=== PATIENT | male | born 1950 | race Caucasian/White ===

== ENCOUNTER → 2016-09-09 | Outpatient (CLI) | payer OTHER ==
[~2016-09-09] MED LIST: ALPR0.25 PO; ASPI-515 PO; EZET10TA3 PO; FINA1TAB16 PO; LEVO25TA4 PO; METO25TA35 PO; OXYC-302 PO; TAMS-11 PO
== END | disposition home or self-care (01) ==
LOC: CFH 10:30
PROVIDERS: ATTEND Family Medicine
DX: R91.8 Other nonspecific abnormal finding of lung field (principal); K56.69 Other intestinal obstruction; M25.811 Other specified joint disorders, right shoulder
CPT/HCPCS: 74022

== ENCOUNTER 2016-09-11 18:21 | Inpatient (IN) | payer OTHER ==
[~2016-09-11] VITALS: Ht 172.7 cm; Wt 78.5 kg
[2016-09-11] MEDS ORDERED: SODIUM CHLORIDE FLUSH 10ML SYR IVF ONE (19:00)
[2016-09-11 19:32] LABS: ASPARTATE AMINO TRANSFERASE 33 U/L (15-37); BLOOD UREA NITROGEN 11 mg/dL (7-18)
[2016-09-11 19:42] LABS: HEMOGLOBIN 14.1 g/dL (13.7-18.0)
[2016-09-11 19:43] LABS: ANISOCYTOSIS 2+
[2016-09-11 19:44] LABS: HYPOCHROMIA 1+; POLYCHROMASIA 1+; TARGET CELLS 1+
[2016-09-11 19:45] LABS: OVALOCYTES 1+
[2016-09-11] MEDS ORDERED: SODIUM CHLORIDE 0.9% 1,000 ML IV ONE ×2 (20:04→21:49)
[2016-09-11] MEDS ORDERED: MORPHINE SULFATE 4 MG/ML, 1ML ONE (20:24)
[2016-09-11] MEDS ORDERED: ONDANSETRON 2MG/ML, 2ML ONE (20:24)
[2016-09-11] MEDS ORDERED: ONDANSETRON 2MG/ML, 2ML IVPush ONE (20:30)
[2016-09-11] MEDS ORDERED: MORPHINE SULFATE 4 MG/ML, 1ML IVPush PRN (20:30)
[2016-09-11] MEDS ORDERED: SODIUM CHLORIDE 0.9% 1,000ML IVBOLUS ONE (20:30)
[2016-09-11] MEDS ORDERED: SODIUM CHLORIDE FLUSH 10ML SYR IVF PRN (22:00)
[2016-09-11] MEDS: SODIUM CHLORIDE 0.9% 1,000 ML IV SCH (22:40)
[2016-09-11] MEDS ORDERED: ACETAMINOPHEN 325 MG TABLET PO PRN (23:00)
[2016-09-11] MEDS ORDERED: ONDANSETRON 2MG/ML, 2ML IVP PRN (23:00)
[2016-09-11] MEDS ORDERED: POLYETHYLENE GLYCOL 17 GM PACKET PO PRN (23:00)
[2016-09-11 23:24] VITALS: BP 116/79
[2016-09-11] MEDS: HEPARIN 5,000 UNITS/ML, 1ML SQ SCH (23:43)
[2016-09-11] MEDS: MORPHINE SULFATE 4 MG/ML, 1ML IVPush PRN (23:58)
[2016-09-12] MEDS: METRONIDAZOLE PMX 500MG/100ML 100 ML IV SCH ×3 (00:12→17:15)
[2016-09-12] MEDS: CEFTRIAXONE PMX 1GM/50ML 50 ML IV SCH (01:19)
[2016-09-12] MEDS: MORPHINE SULFATE 4 MG/ML, 1ML IVPush PRN ×5 (03:15→22:07)
[2016-09-12 04:57] VITALS: BP 120/69
[2016-09-12] MEDS ORDERED: LEVOTHYROXINE 25 MCG TABLET PO SCH (06:00)
[2016-09-12 06:34] LABS: BLOOD UREA NITROGEN 11 mg/dL (7-18)
[2016-09-12 06:37] LABS: ASPARTATE AMINO TRANSFERASE 37 U/L (15-37)
[2016-09-12 06:51] LABS: ANISOCYTOSIS 2+; HYPOCHROMIA 1+; MICROCYTOSIS 1+; OVALOCYTES 1+
[2016-09-12 06:52] LABS: POLYCHROMASIA 1+
[2016-09-12 08:27] VITALS: BP 117/76
[2016-09-12] MEDS ORDERED: FINASTERIDE 5 MG TABLET PO SCH (09:00)
[2016-09-12] MEDS ORDERED: TAMSULOSIN 0.4 MG CAP.ER.24H PO SCH (09:00)
[2016-09-12] MEDS: HEPARIN 5,000 UNITS/ML, 1ML SQ SCH ×2 (09:05→17:15)
[2016-09-12] MEDS: ASPIRIN 81 MG TABLET EC PO SCH (09:07)
[2016-09-12] MEDS: SENNA/DOCUSATE TABLET PO SCH (09:07)
[2016-09-12] MEDS: BISACODYL 10 MG SUPP PR SCH (09:15)
[2016-09-12] MEDS: SODIUM CHLORIDE 0.9% 1,000 ML IV SCH ×2 (09:16→19:48)
[2016-09-12 13:47] VITALS: BP 120/79
[2016-09-12] MEDS ORDERED: IRON SUCROSE COMPLEX 100MG/5ML IV ONE (19:00)
[2016-09-12] MEDS ORDERED: LORazepam 1MG TABLET PO PRN (19:30)
[2016-09-12 19:58] VITALS: BP 122/78
[2016-09-12] MEDS: POLYETHYLENE GLYCOL 17 GM PACKET PO SCH (20:14)
[2016-09-13] MEDS: CEFTRIAXONE PMX 1GM/50ML 50 ML IV SCH (00:40)
[2016-09-13] MEDS: HEPARIN 5,000 UNITS/ML, 1ML SQ SCH ×3 (00:40→17:24)
[2016-09-13] MEDS: MORPHINE SULFATE 4 MG/ML, 1ML IVPush PRN ×3 (01:33→22:10)
[2016-09-13] MEDS: METRONIDAZOLE PMX 500MG/100ML 100 ML IV SCH ×3 (01:33→18:38)
[2016-09-13 01:37] VITALS: BP 144/74
[2016-09-13] MEDS: LEVOTHYROXINE 25 MCG TABLET HOMEMEDPO SCH (05:54)
[2016-09-13] MEDS: SODIUM CHLORIDE 0.9% 1,000 ML IV SCH ×3 (05:54→18:38)
[2016-09-13 05:59] LABS: HEMOGLOBIN 12.1 g/dL (13.7-18.0)
[2016-09-13 06:39] LABS: BLOOD UREA NITROGEN 6 mg/dL (7-18)
[2016-09-13 08:14] VITALS: BP 121/75
[2016-09-13] MEDS: SENNA/DOCUSATE TABLET PO SCH (08:39)
[2016-09-13] MEDS: ASPIRIN 81 MG TABLET EC PO SCH (08:39)
[2016-09-13] MEDS: POLYETHYLENE GLYCOL 17 GM PACKET PO SCH (08:39)
[2016-09-13] MEDS: BISACODYL 10 MG SUPP PR SCH (09:00)
[2016-09-13 13:47] VITALS: BP 113/71
[2016-09-13 14:26] LABS: OCCBLD OBC PASS
[2016-09-13] MEDS ORDERED: CALCIUM GLUCONATE 9.2 MEQ in SODIUM CHLORIDE 0.9% 100 ML IV ONE (18:00)
[2016-09-13] MEDS ORDERED: POTASSIUM CHLORIDE 40 MEQ in SODIUM CHLORIDE 0.9% 500 ML IV ONE (18:00)
[2016-09-13 19:41] VITALS: BP 152/90
[2016-09-13] MEDS: FINASTERIDE 5 MG TABLET HOMEMEDPO SCH (20:54)
[2016-09-13] MEDS: TAMSULOSIN 0.4 MG CAP.ER.24H HOMEMEDPO SCH (20:55)
[2016-09-14] MEDS: CEFTRIAXONE PMX 1GM/50ML 50 ML IV SCH (01:08)
[2016-09-14] MEDS: HEPARIN 5,000 UNITS/ML, 1ML SQ SCH ×3 (01:12→17:11)
[2016-09-14 01:29] VITALS: BP 131/69
[2016-09-14] MEDS: METRONIDAZOLE PMX 500MG/100ML 100 ML IV SCH ×3 (02:45→18:28)
[2016-09-14] MEDS: MORPHINE SULFATE 4 MG/ML, 1ML IVPush PRN ×2 (03:24→21:51)
[2016-09-14] MEDS: LEVOTHYROXINE 25 MCG TABLET HOMEMEDPO SCH (06:00)
[2016-09-14 06:33] VITALS: BP 113/77
[2016-09-14] MEDS: SENNA/DOCUSATE TABLET PO SCH (08:41)
[2016-09-14] MEDS: FINASTERIDE 5 MG TABLET HOMEMEDPO SCH (08:43)
[2016-09-14] MEDS: ASPIRIN 81 MG TABLET EC PO SCH (08:43)
[2016-09-14] MEDS: TAMSULOSIN 0.4 MG CAP.ER.24H HOMEMEDPO SCH (08:43)
[2016-09-14] MEDS: BISACODYL 10 MG SUPP PR SCH (08:45)
[2016-09-14] MEDS: POLYETHYLENE GLYCOL 17 GM PACKET PO SCH (08:45)
[2016-09-14] MEDS ORDERED: zetia PO (11:41)
[2016-09-14] MEDS ORDERED: IRON SUCROSE COMPLEX 100MG/5ML IV ONE (12:00)
[2016-09-14] MEDS ORDERED: CEFD300C2 PO (12:10)
[2016-09-14] MEDS ORDERED: SENN1TAB7 PO (12:10)
[2016-09-14] MEDS ORDERED: FERR324T8 PO (12:10)
[2016-09-14] MEDS ORDERED: METR500T PO (12:10)
[2016-09-14] MEDS ORDERED: FINA5TAB4 HOMEMEDPO (12:10)
[2016-09-14] MEDS: EZETIMIBE 10 MG TABLET PO SCH (13:05)
[2016-09-14 13:54] VITALS: BP 143/89
[2016-09-14] MEDS: SODIUM CHLORIDE 0.9% 1,000 ML IV SCH ×2 (15:18→22:00)
[2016-09-14 18:36] VITALS: BP 152/84
[2016-09-14] MEDS: OXYcodone/APAP 10/325MG TABLET PO PRN (20:10)
[2016-09-14] MEDS ORDERED: TAMSULOSIN 0.4 MG CAP.ER.24H HOMEMEDPO SCH (21:00)
[2016-09-14] MEDS ORDERED: FINASTERIDE 5 MG TABLET HOMEMEDPO SCH (21:00)
[2016-09-14] MEDS ORDERED: SODIUM CHLORIDE 0.9% 1,000 ML IV SCH (22:40)
[2016-09-15] MEDS: MORPHINE SULFATE 4 MG/ML, 1ML IVPush PRN ×2 (01:07→06:10)
[2016-09-15] MEDS: CEFTRIAXONE PMX 1GM/50ML 50 ML IV SCH (01:07)
[2016-09-15] MEDS: HEPARIN 5,000 UNITS/ML, 1ML SQ SCH ×2 (01:15→08:59)
[2016-09-15 01:58] VITALS: BP 117/71
[2016-09-15] MEDS: OXYcodone/APAP 10/325MG TABLET PO PRN (03:07)
[2016-09-15] MEDS: METRONIDAZOLE PMX 500MG/100ML 100 ML IV SCH ×2 (03:07→11:12)
[2016-09-15] MEDS: LEVOTHYROXINE 25 MCG TABLET HOMEMEDPO SCH (06:11)
[2016-09-15 08:28] VITALS: BP 129/85
[2016-09-15] MEDS: POLYETHYLENE GLYCOL 17 GM PACKET PO SCH (08:54)
[2016-09-15] MEDS: BISACODYL 10 MG SUPP PR SCH (08:54)
[2016-09-15] MEDS: SENNA/DOCUSATE TABLET PO SCH (08:55)
[2016-09-15] MEDS: EZETIMIBE 10 MG TABLET PO SCH (08:58)
[2016-09-15] MEDS ORDERED: ASPIRIN 81 MG TABLET EC PO SCH (09:00)
[2016-09-15] MEDS: SODIUM CHLORIDE 0.9% 1,000 ML IV SCH (11:26)
[2016-09-15 14:33] VITALS: BP 111/66
[2016-09-16] MEDS ORDERED: FERROUS GLUCONATE 324 MG TABLET PO SCH (17:00)
== END 2016-09-15 15:10 | disposition home or self-care (01) | DRG 392 ==
LOC: ED 21:18 → EDIP 22:51 → 4NOR 23:22
DX: K57.32 Diverticulitis of large intestine without perforation or abscess without bleeding (principal); I50.20 Unspecified systolic (congestive) heart failure; E78.5 Hyperlipidemia, unspecified; K59.00 Constipation, unspecified; G90.2 Horner's syndrome; E03.9 Hypothyroidism, unspecified; N40.0 Benign prostatic hyperplasia without lower urinary tract symptoms; D50.9 Iron deficiency anemia, unspecified; F41.9 Anxiety disorder, unspecified; I25.10 Atherosclerotic heart disease of native coronary artery without angina pectoris; Z87.891 Personal history of nicotine dependence; Z95.5 Presence of coronary angioplasty implant and graft; Z90.49 Acquired absence of other specified parts of digestive tract; Z81.1 Family history of alcohol abuse and dependence
CPT/HCPCS: 36415; 74022; 80048; 80053; 81003; 82272; 82306; 82607; 82728; 83540; 83550; 83605; 83690; 83735; 84100; 85025; 96361; 96374; J0610; J0696; J1644; J1756; J2405; J3480; J7030; J7040

== ENCOUNTER → 2016-09-24 | Outpatient (CLI) | payer OTHER ==
[~2016-09-24] MED LIST changes: +CEFD300C37 PO; +FERR324T8 PO; +FINA5TAB4 HOMEMEDPO; +METR500T PO; +SENN1TAB7 PO; +zetia PO
== END | disposition home or self-care (01) ==
LOC: RAD 07:30
PROVIDERS: ATTEND Internal Medicine Gastroenterology
DX: K57.30 Diverticulosis of large intestine without perforation or abscess without bleeding (principal); K56.69 Other intestinal obstruction; J44.9 Chronic obstructive pulmonary disease, unspecified; K22.70 Barrett's esophagus without dysplasia; G47.30 Sleep apnea, unspecified; K59.00 Constipation, unspecified; E61.1 Iron deficiency
CPT/HCPCS: 74270

== ENCOUNTER → 2016-12-11 | Outpatient (CLI) | payer OTHER | END | disposition home or self-care (01) | LOC: CFH 12:13 | PROVIDERS: ATTEND Family Medicine | DX: J44.9 Chronic obstructive pulmonary disease, unspecified (principal) | CPT/HCPCS: 71020 ==

== ENCOUNTER 2017-06-17 21:30 | Emergency (ER) | payer OTHER ==
[~2017-06-17] VITALS: Ht 172.7 cm; Wt 80.0 kg
[~2017-06-17 21:30] MED LIST changes: +EZET10TA18 PO; -EZET10TA3 PO
[2017-06-17 22:38] LABS: MEAN CORPUSCULAR HEMOGLOBIN 20.5 pg (27.5-34.5); MEAN CORPUSCULAR HGB CONC 30.7 g/dL (33.2-36.2); MEAN CORPUSCULAR VOLUME 66.9 fL (81-97); MEAN PLATELET VOLUME 7.8 fL (7.4-10.4); PLATELET COUNT 411 x10^3/uL (130-400); RED BLOOD COUNT 6.32 x10^6/uL (4.38-5.82); RED CELL DISTRIBUTION WIDTH 21.9 % (9.4-14.8)
[2017-06-17 22:45] LABS: ALANINE AMINOTRANSFERASE 33 U/L (12-78); ANION GAP 7 mmol/L (5-15); CALCIUM 8.6 mg/dL (8.5-10.1); CHLORIDE 104 mmol/L (98-107)
[2017-06-17 22:50] LABS: ALKALINE PHOSPHATASE 56 U/L (45-117); BILIRUBIN,TOTAL 0.4 mg/dL (0.2-1.0); CREATININE 1.15 mg/dL (0.7-1.3); TOTAL PROTEIN 7.9 g/dL (6.4-8.2); TROPONIN I < 0.015 ng/mL (0.000-0.045)
[2017-06-17 23:06] LABS: MICROSCOPIC NOT IND
[2017-06-17 23:12] LABS: BASOPHILS # (AUTO) 0.07 x10^3/uL (0-0.1); BASOPHILS % (AUTO) 1 % (0-1); EOSINOPHILS # (AUTO) 0.51 x10^3/uL (0-0.4); EOSINOPHILS % (AUTO) 5 % (1-7); LYMPHOCYTES # (AUTO) 3.22 x10^3/uL (1-3.4); LYMPHOCYTES % (AUTO) 32 % (22-44); MD MORPH REVIEW ONLY; MONOCYTES # (AUTO) 0.92 x10^3/uL (0.2-0.8); MONOCYTES % (AUTO) 9 % (2-9); NEUTROPHILS # (AUTO) 5.44 x10^3/uL (1.8-6.8); NEUTROPHILS % (AUTO) 54 % (42-75)
[2017-06-17 23:15] LABS: <PLATELET ESTIMATE> INCREASED; <PLT MORPHOLOGY> NORMAL PLT MORPH; ANISOCYTOSIS 2+; HYPOCHROMIA 1+; MICROCYTOSIS 1+; OVALOCYTES 1+; POLYCHROMASIA 1+; TEAR DROPS 1+
[2017-06-17 23:16] LABS: CULTURE INDICATED? NO
[2017-06-18 00:03] VITALS: BP 141/51
[2017-06-18 00:36] LABS: FREE T4 (FREE THYROXINE) 0.83 ng/dL (0.76-1.46); THYROID STIMULATING HORMONE 3.83 mIU/L (0.358-3.740)
== END 2017-06-18 01:07 | disposition home or self-care (01) ==
LOC: ED 23:18
DX: R00.8 Other abnormalities of heart beat (principal); I49.3 Ventricular premature depolarization; R42 Dizziness and giddiness; R53.83 Other fatigue; E03.9 Hypothyroidism, unspecified; I25.10 Atherosclerotic heart disease of native coronary artery without angina pectoris; Z90.49 Acquired absence of other specified parts of digestive tract
CPT/HCPCS: 36415; 71045; 80053; 81003; 83735; 84439; 84443; 84484; 85025; 93005; 99285

== ENCOUNTER 2017-06-20 15:18 | Inpatient (IN) | payer OTHER ==
[~2017-06-20] VITALS: Ht 172.7 cm; Wt 78.4 kg
[2017-06-20] MEDS ORDERED: SODIUM CHLORIDE FLUSH 10ML SYR IVF ONE (16:00)
[2017-06-20] MEDS ORDERED: PLEASE ENTER HEIGHT AND WEIGHT MC SCH (16:00)
[2017-06-20 16:30] LABS: MEAN CORPUSCULAR HEMOGLOBIN 20.3 pg (27.5-34.5); MEAN CORPUSCULAR HGB CONC 30.6 g/dL (33.2-36.2); MEAN CORPUSCULAR VOLUME 66.2 fL (81-97); MEAN PLATELET VOLUME 7.9 fL (7.4-10.4); PLATELET COUNT 386 x10^3/uL (130-400); RED CELL DISTRIBUTION WIDTH 21.3 % (9.4-14.8)
[2017-06-20 16:32] LABS: ALANINE AMINOTRANSFERASE 29 U/L (12-78); ALBUMIN 4.1 g/dL (3.4-5.0); ANION GAP 8 mmol/L (5-15); CALCIUM 8.6 mg/dL (8.5-10.1); CHLORIDE 102 mmol/L (98-107); CREATININE 1.13 mg/dL (0.7-1.3)
[2017-06-20 16:36] LABS: ALKALINE PHOSPHATASE 59 U/L (45-117); BILIRUBIN,TOTAL 1.2 mg/dL (0.2-1.0); TOTAL PROTEIN 8.1 g/dL (6.4-8.2); TROPONIN I < 0.015 ng/mL (0.000-0.045)
[2017-06-20 17:00] LABS: MD YES
[2017-06-20 17:04] LABS: BASOS#(MANUAL) 0.08 x10^3/uL (0-0.1); BASOS% (MANUAL) 1 % (0-1); EOS#(MANUAL) 0.17 x10^3/uL (0.0-0.4); EOS% (MANUAL) 2 % (1-7); LYMPH#(MANUAL) 2.99 x10^3/uL (1-3.4); LYMPHS% (MANUAL) 36 % (22-44); MONOS#(MANUAL) 0.91 x10^3/uL (0.3-2.7); MONOS% (MANUAL) 11 % (2-9); REACTIVE LYMPHS # (MANUAL) 0.08 x10^3/uL (0-0); REACTIVE LYMPHS % (MANUAL) 1 % (0-0); SEG#(MANUAL) 4.07 x10^3/uL (1.8-6.8); SEGS% (MANUAL) 49 % (42-75)
[2017-06-20 17:05] LABS: ANISOCYTOSIS 2+; MICROCYTOSIS 1+
[2017-06-20 17:06] LABS: HYPOCHROMIA 1+; POLYCHROMASIA 1+
[2017-06-20 17:07] LABS: OVALOCYTES 1+
[2017-06-20 17:08] LABS: <PLATELET ESTIMATE> ADEQUATE; <PLT MORPHOLOGY> NORMAL PLT MORPH
[2017-06-20] MEDS ORDERED: LORazepam 2 MG/ML, 1ML ONE (17:50)
[2017-06-20] MEDS ORDERED: LORazepam 2 MG/ML, 1ML IVPush ONE (18:00)
[2017-06-20] MEDS ORDERED: SODIUM CHLORIDE 0.9% 1,000 ML IV SCH (19:03)
[2017-06-20] MEDS ORDERED: ONDANSETRON 2MG/ML, 2ML IVPush PRN (19:30)
[2017-06-20] MEDS ORDERED: ACETAMINOPHEN 325 MG TABLET PO PRN (19:30)
[2017-06-20] MEDS ORDERED: hydrALAzine 20 MG/ML, 1ML IVPush PRN (19:30)
[2017-06-20] MEDS ORDERED: SENNA/DOCUSATE TABLET PO PRN (19:30)
[2017-06-20 21:20] VITALS: BP 138/77
[2017-06-20] MEDS: FERROUS GLUCONATE 324 MG TABLET PO SCH (22:01)
[2017-06-21 03:20] VITALS: BP 95/59
[2017-06-21 06:51] VITALS: BP 97/63
[2017-06-21] MEDS: FERROUS GLUCONATE 324 MG TABLET PO SCH (08:56)
[2017-06-21] MEDS ORDERED: TAMSULOSIN 0.4 MG CAP.ER.24H PO SCH (09:00)
[2017-06-21] MEDS ORDERED: LEVOTHYROXINE 25 MCG TABLET PO SCH (09:00)
== END 2017-06-21 13:47 | disposition home or self-care (01) | DRG 310 ==
LOC: ED 17:10 → EDIP 17:11 → ED 17:15 → 5SO 20:32
PROVIDERS: ADMIT Hospitalist; ATTEND Hospitalist
DX: I49.5 Sick sinus syndrome (principal); G90.2 Horner's syndrome; E03.9 Hypothyroidism, unspecified; E78.5 Hyperlipidemia, unspecified; F41.9 Anxiety disorder, unspecified; I25.10 Atherosclerotic heart disease of native coronary artery without angina pectoris; N40.0 Benign prostatic hyperplasia without lower urinary tract symptoms; I34.0 Nonrheumatic mitral (valve) insufficiency; M24.011 Loose body in right shoulder; Z87.01 Personal history of pneumonia (recurrent); Z87.891 Personal history of nicotine dependence; Z95.5 Presence of coronary angioplasty implant and graft; Z90.49 Acquired absence of other specified parts of digestive tract; R00.8 Other abnormalities of heart beat
CPT/HCPCS: 36415; 71045; 80053; 83880; 84484; 85025; 93005; 93306; 96374; J2060; J7030

== ENCOUNTER 2017-09-03 13:10 | Emergency (ER) | payer OTHER ==
[~2017-09-03] VITALS: Ht 172.7 cm; Wt 79.9 kg
[2017-09-03 14:26] LABS: ALBUMIN 3.9 g/dL (3.4-5.0); ANION GAP 7 mmol/L (5-15); CALCIUM 8.8 mg/dL (8.5-10.1); CHLORIDE 102 mmol/L (98-107); CREATININE 1.03 mg/dL (0.7-1.3)
[2017-09-03 14:30] LABS: T4 (THYROXINE) 11.2 mcg/dL (4.5-12.1); TROPONIN I < 0.015 ng/mL (0.000-0.045)
[2017-09-03 14:39] LABS: MEAN CORPUSCULAR HEMOGLOBIN 22.2 pg (27.5-34.5); MEAN CORPUSCULAR HGB CONC 31.2 g/dL (33.2-36.2); MEAN CORPUSCULAR VOLUME 71.3 fL (81-97); MEAN PLATELET VOLUME 8.3 fL (7.4-10.4); PLATELET COUNT 348 x10^3/uL (130-400); RED BLOOD COUNT 6.39 x10^6/uL (4.38-5.82); RED CELL DISTRIBUTION WIDTH 23.8 % (9.4-14.8)
[2017-09-03 14:49] VITALS: BP 132/89
[2017-09-03 15:22] LABS: MD MORPH REVIEW ONLY
[2017-09-03 15:23] LABS: ANISOCYTOSIS 2+; BASOPHILS # (AUTO) 0.05 x10^3/uL (0-0.1); BASOPHILS % (AUTO) 1 % (0-1); EOSINOPHILS # (AUTO) 0.13 x10^3/uL (0-0.4); EOSINOPHILS % (AUTO) 1 % (1-7); HYPOCHROMIA 1+; LYMPHOCYTES # (AUTO) 1.99 x10^3/uL (1-3.4); LYMPHOCYTES % (AUTO) 22 % (22-44); MICROCYTOSIS 1+; MONOCYTES # (AUTO) 0.69 x10^3/uL (0.2-0.8); MONOCYTES % (AUTO) 8 % (2-9); NEUTROPHILS # (AUTO) 6.37 x10^3/uL (1.8-6.8); NEUTROPHILS % (AUTO) 69 % (42-75); OVALOCYTES 2+; POLYCHROMASIA 1+
[2017-09-03 15:24] LABS: <PLATELET ESTIMATE> ADEQUATE; <PLT MORPHOLOGY> NORMAL PLT MORPH; SCHISTOCYTES 1+; TARGET CELLS 1+
== END 2017-09-03 15:53 | disposition home or self-care (01) ==
LOC: ED 15:40
DX: R00.2 Palpitations (principal); E03.9 Hypothyroidism, unspecified; F41.9 Anxiety disorder, unspecified; Z90.49 Acquired absence of other specified parts of digestive tract; I25.2 Old myocardial infarction
CPT/HCPCS: 36415; 80048; 82040; 84436; 84443; 84484; 85025; 93005; 99285

== ENCOUNTER → 2020-02-29 | Outpatient (CLI) | payer MEDICARE ==
[~2020-02-29] MED LIST changes: -EZET10TA18 PO; +EZET10TA70 PO; +SENN-177 PO; -SENN1TAB7 PO
== END | disposition home or self-care (01) ==
LOC: CFH 12:50
PROVIDERS: ATTEND Internal Medicine Cardiovascular Disease
DX: I46.9 Cardiac arrest, cause unspecified (principal)
CPT/HCPCS: 93306

== ENCOUNTER 2020-04-23 18:12 | Emergency (ER) | payer MEDICARE ==
[~2020-04-23] VITALS: Ht 165.1 cm; Wt 80.2 kg
--- NOTE | 2020-04-23 18:14 | NUR ---
NA X 1 @ [id number]
[2020-04-23 18:55] LABS: BASOPHILS % (AUTO) 1 % (0-1); EOSINOPHILS % (AUTO) 5 % (1-7); LYMPHOCYTES % (AUTO) 26 % (22-44); MEAN CORPUSCULAR HEMOGLOBIN 24.4 pg (27.5-34.5); MEAN CORPUSCULAR HGB CONC 32.1 g/dL (33.2-36.2); MEAN PLATELET VOLUME 7.1 fL (7.4-10.4); MONOCYTES % (AUTO) 8 % (2-9); NEUTROPHILS % (AUTO) 61 % (42-75); PLATELET COUNT 423 x10^3/uL (130-400); RED BLOOD COUNT 5.56 x10^6/uL (4.38-5.82); RED CELL DISTRIBUTION WIDTH 21.3 % (9.4-14.8)
[2020-04-23 18:58] LABS: MD NO
[2020-04-23 19:06] LABS: ALBUMIN 3.4 g/dL (3.4-5.0); ANION GAP 1 mmol/L (5-15); CALCIUM 8.7 mg/dL (8.5-10.1); CHLORIDE 106 mmol/L (98-107); CREATININE 1.16 mg/dL (0.7-1.3)
[2020-04-23 19:09] LABS: TROPONIN I < 0.015 ng/mL (0.000-0.045)
--- NOTE | 2020-04-23 19:19 | NUR ---
pt in room, and MD to bedside to eval. pt on cr monitor. c/o chest pain still, and difficulty breathing. o2 nc placed on pt, and o2 sat to 97%
[2020-04-23] MEDS ORDERED: ASPIRIN 81 MG TABLET CHEW PO ONE (19:30)
[2020-04-23] MEDS ORDERED: SODIUM CHLORIDE FLUSH 10ML SYR IVF ONE (19:30)
[2020-04-23] MEDS ORDERED: NITROGLYCERIN SINGLE TAB 0.4 MG SL PRN (19:30)
[2020-04-23] MEDS ORDERED: NITROGLYCERIN SINGLE TAB 0.4 MG SL ONE (19:35)
[2020-04-23] MEDS ORDERED: ACETAMINOPHEN 325 MG TABLET ONE (19:35)
[2020-04-23] MEDS ORDERED: ASPIRIN 81 MG TABLET CHEW ONE ×2 (19:39→19:42)
--- NOTE | 2020-04-23 20:52 | NUR ---
pt states that chest pressure has dissipated and mostly gone. still has pain to left shoulder. up to commode, on cr monitor, v/s logged.
--- NOTE | 2020-04-23 21:10 | NUR ---
RECEIVED BEDSIDE REPORT AND CARE FROM MARLON RN. CARE ASSUMED AT THIS TIME. VSS. SR ON MONITOR. DENIES AND CP, PAIN, SOB. AWAITING LAB TROP RESULTS. CALL LIGHT IN REACH. FALL PRECAUTIONS IN PLACE. A&OX4. ALL NEEDS MET AND ADDRESSED AT THIS TIME.
[2020-04-23 21:21] LABS: TROPONIN I < 0.015 ng/mL (0.000-0.045)
--- NOTE | 2020-04-23 21:55 | NUR ---
DR. MANCERA AT BEDSIDE FOR RECHECK, DISCUSSING DISCHARGE POC AND TEST RESULTS WITH PT. HÉCTOR. SR ON MONITOR. CALL LIGHT IN REACH. FALL PRECAUTIONS IN PLACE
--- NOTE | 2020-04-23 22:30 | NUR ---
AWAITING CHART AND DC PAPERS FROM ERP. PT RESTING COMFORTABLY. DENIES ANY PAIN OR CP AND NEED TO USE RESTROOM. VSS. SR ON MONITOR. CALL LIGHT IN REACH
[2020-04-23 22:51] VITALS: BP 127/85
== END 2020-04-23 22:57 | disposition home or self-care (01) ==
LOC: ED 21:26
DX: R07.1 Chest pain on breathing (principal); R94.31 Abnormal electrocardiogram [ECG] [EKG]; I25.10 Atherosclerotic heart disease of native coronary artery without angina pectoris
CPT/HCPCS: 36415; 71046; 80048; 82040; 84484; 85025; 93005; 99284; 99285

== ENCOUNTER 2021-02-04 20:12 | Emergency (ER) | payer MEDICARE ==
[~2021-02-04] VITALS: Ht 172.7 cm; Wt 81.9 kg
[~2021-02-04 20:12] MED LIST changes: +ACET600C6 PO; +AMIN1CAP2 PO; -ASPI-515 PO; +ASPI-963 PO; +ASPI81TA45 PO; +CARV3.122 PO; +D3 PO; +LISI-167 PO; +LISI-170 PO; +NITR0.4T28 SL; -OXYC-302 PO; +OXYC1TAB12 PO; +PQQ PO; +SELE200C PO; +TICA90TA PO
[2021-02-04] MEDS ORDERED: ASPIRIN 81 MG TABLET CHEW PO ONE (20:30)
--- NOTE | 2021-02-04 20:31 | NUR ---
SATS IMPROVED TO 98% ON 2l
[2021-02-04] MEDS ORDERED: ASPIRIN 81 MG TABLET CHEW ONE (20:37)
--- NOTE | 2021-02-04 21:01 | NUR ---
Surinder SCOTT notified immediately about differences in BPs taken on both arms with concerns that patient is having an aortic dissection. Surinder SCOTT at the bedside assessing patient
[2021-02-04 21:22] LABS: BASOPHILS % (AUTO) 1 % (0-1); EOSINOPHILS % (AUTO) 3 % (1-7); LYMPHOCYTES % (AUTO) 22 % (22-44); MEAN CORPUSCULAR HEMOGLOBIN 26.5 pg (27.5-34.5); MEAN CORPUSCULAR HGB CONC 32.2 g/dL (33.2-36.2); MEAN PLATELET VOLUME 8.1 fL (7.4-10.4); MONOCYTES % (AUTO) 9 % (2-9); NEUTROPHILS % (AUTO) 65 % (42-75); PLATELET COUNT 237 x10^3/uL (130-400); RED CELL DISTRIBUTION WIDTH 22.6 % (9.4-14.8)
[2021-02-04 21:29] LABS: ALANINE AMINOTRANSFERASE 26 U/L (12-78); ALBUMIN 3.1 g/dL (3.4-5.0); ANION GAP 3 mmol/L (5-15); CALCIUM 8.4 mg/dL (8.5-10.1); CHLORIDE 100 mmol/L (98-107); CREATININE 1.32 mg/dL (0.7-1.3); INTERNATIONAL NORMALIZED RATIO 0.95 (0.93-1.1); PROTHROMBIN TIME 10.2 Seconds (9.6-11.5)
[2021-02-04] MEDS ORDERED: ONDANSETRON 2MG/ML, 2ML IVPush ONE (21:30)
[2021-02-04] MEDS ORDERED: SODIUM CHLORIDE 0.9% 1,000 ML IV ONE (21:30)
[2021-02-04] MEDS ORDERED: SODIUM CHLORIDE FLUSH 10ML SYR IVF ONE (21:30)
[2021-02-04 21:34] LABS: ALKALINE PHOSPHATASE 77 U/L (45-117); BILIRUBIN,TOTAL 0.4 mg/dL (0.2-1.0); TOTAL PROTEIN 7.2 g/dL (6.4-8.2); TROPONIN I < 0.015 ng/mL (0.000-0.045)
[2021-02-04] MEDS ORDERED: ONDANSETRON 2MG/ML, 2ML ONE (21:37)
[2021-02-04] MEDS ORDERED: MORPHINE SULFATE 4 MG/ML, 1ML ONE (21:37)
[2021-02-04] MEDS: MORPHINE SULFATE 4 MG/ML, 1ML IVPush PRN (21:40)
--- NOTE | 2021-02-04 21:53 | NUR ---
CT called to see why patient has not been taken for his scan yet. CT said that labs need to result first. notified that labs have already resulted and patinet to be taken to CT
[2021-02-04] MEDS ORDERED: methylPREDNISolone SOD SUCC 125 MG/2 ML IV ONE (22:30)
[2021-02-04] MEDS ORDERED: ALBUTEROL/IPRATROPIUM 2.5MG/0.5MG, 3 ML NPPB ONE (22:30)
[2021-02-04] MEDS ORDERED: methylPREDNISolone SOD SUCC 125 MG/2 ML ONE (22:31)
[2021-02-04] MEDS ORDERED: ALBUTEROL/IPRATROPIUM 2.5MG/0.5MG, 3 ML ONE (22:31)
[2021-02-04] MEDS ORDERED: OMNIPAQUE 350 MG/ML, 100ML BOTTLE ONE (23:58)
[2021-02-05 00:38] VITALS: BP 99/51
[2021-02-05] MEDS ORDERED: MORPHINE SULFATE 4 MG/ML, 1ML ONE (00:51)
[2021-02-05 00:53] LABS: TROPONIN I < 0.015 ng/mL (0.000-0.045)
[2021-02-05] MEDS: MORPHINE SULFATE 4 MG/ML, 1ML IVPush PRN (00:53)
== END 2021-02-05 01:29 | disposition home or self-care (01) ==
LOC: ED 21:25
DX: J44.1 Chronic obstructive pulmonary disease with (acute) exacerbation (principal); I70.0 Atherosclerosis of aorta; R07.89 Other chest pain
CPT/HCPCS: 36415; 71045; 71275; 74174; 80053; 83690; 83735; 83880; 84484; 85025; 85610; 85730; 86850; 86900; 93005; 94640; 96361; 96374; 96375; 96376; 99285; J2270; J2405; J2930; J7030; Q9967